=== PATIENT | male | born 1945 | race Caucasian/White ===

== ENCOUNTER 2021-01-03 15:59 | Inpatient (IN) | payer OTHER, MEDICARE ==
[~2021-01-03] VITALS: Ht 180.3 cm; Wt 90.8 kg
[2021-01-03] MEDS ORDERED: potassium Cl 20 mEq SR tablet PO PRN ×2 (18:55)
[2021-01-03] MEDS ORDERED: magnesium hydroxide 30ml (MOM) UD suspension PO PRN (18:55)
[2021-01-03] MEDS ORDERED: potassium Cl 40MEQ/1/2NS 520ml 520 ML IV PRN ×2 (18:55)
[2021-01-03] MEDS ORDERED: morphine 4 MG/ML inj SYRINge IV PRN (18:55)
[2021-01-03] MEDS ORDERED: HYDROcodone/acetaminophen 10/325mg tab PO PRN (18:55)
[2021-01-03] MEDS ORDERED: acetaminophen 325mg tablet PO PRN ×2 (18:55)
[2021-01-03] MEDS ORDERED: ondansetron/PF 4mg/2ml inj IV PRN (18:55)
[2021-01-03] MEDS ORDERED: potassium Cl 40MEQ/250ML bag 270 ML IV PRN ×2 (18:55)
[2021-01-03 19:00] VITALS: BP 130/77
[2021-01-03] MEDS: LIDOcaine 2% 10ml TOPICAL JELLY (Urojet) TP ONE (19:18)
[2021-01-03] MEDS: famotidine 20mg tablet PO SCH (19:34)
[2021-01-03] MEDS: normal saline 1000ml 1,000 ML IV SCH (19:34)
[2021-01-03] MEDS: docusate sod 100mg capsule PO SCH (19:34)
[2021-01-03] MEDS ORDERED: SACU1TAB PO (19:53)
[2021-01-03] MEDS ORDERED: APIX5TAB3 PO (19:53)
[2021-01-03] MEDS ORDERED: ATOR10TA87 PO (19:53)
[2021-01-03] MEDS ORDERED: CARV3.12 PO (19:53)
[2021-01-03] MEDS ORDERED: CLOP75TA34 PO (19:53)
[2021-01-03 20:00] VITALS: BP 129/78
[2021-01-03] MEDS ORDERED: REMDESIVIR INJ 200 MG in normal saline 100ml IV soln 60 ML IV ONE (20:00)
[2021-01-03 20:14] LABS: BASOPHILS % (AUTO) 0.1 % (0-1); EOSINOPHILS % (AUTO) 0 % (0-6); HEMATOCRIT 39.4 % (42.0-52.0); HEMOGLOBIN 12.9 g/dl (14.0-17.9); LYMPHOCYTES # (AUTO) 0.8 X10'3 (1.1-4.8); LYMPHOCYTES % (AUTO) 13.9 % (21-51); MEAN CORPUSCULAR HEMOGLOBIN 31.1 PG (27.0-31.0); MEAN CORPUSCULAR HGB CONC 32.8 g/dL (33.0-36.5); MEAN CORPUSCULAR VOLUME 94.8 FL (78-98); MEAN PLATELET VOLUME 9.8 FL (7.4-10.4); MONOCYTES # (AUTO) 0.1 X10'3 (0-0.9); MONOCYTES % (AUTO) 2.4 % (2-12); NEUTROPHILS # (AUTO) 4.9 X10'3 (1.8-7.7); NEUTROPHILS % (AUTO) 83.6 % (42-75); PLATELET COUNT 114 X10'3 (140-440); RED BLOOD COUNT 4.15 X10'6 (4.70-6.10); RED CELL DISTRIBUTION WIDTH 14.5 % (11.5-14.5); WHITE BLOOD COUNT 5.9 X10'3 (4.5-11.0)
[2021-01-03 20:31] LABS: ALANINE AMINOTRANSFERASE 92 U/L (12-78); ALBUMIN 2.2 G/DL (3.4-5.0); ALBUMIN/GLOBULIN RATIO 0.4 (1.1-1.5); ALKALINE PHOSPHATASE 70 IU/L (46-116); ANION GAP 11 (8-16); ASPARTATE AMINO TRANSFERASE 116 U/L (10-37); BILIRUBIN,TOTAL 0.9 MG/DL (0.1-1.0); BLOOD UREA NITROGEN 28 MG/DL (7-18); BUN/CREATININE RATIO 19.4 (5.4-32.0); CALCIUM 9.3 MG/DL (8.5-10.1); CHLORIDE 98 MMOL/L (99-107); CREATININE 1.44 MG/DL (0.60-1.10); GLUCOSE 122 MG/DL (70-104); MAGNESIUM 2.6 MG/DL (1.5-2.4); PHOSPHORUS 3.1 MG/DL (2.3-4.5); POTASSIUM 4.7 MMOL/L (3.5-5.1); SODIUM 134 MMOL/L (135-145); TOTAL CARBON DIOXIDE 25.5 MMOL/L (24-32); TOTAL PROTEIN 7.4 G/DL (6.4-8.2); eGFR 48 ML/MIN
[2021-01-03 21:00] VITALS: BP 148/88
[2021-01-03] MEDS: dexamethasone 4mg/ml inj IV SCH (21:14)
[2021-01-03 22:00] VITALS: BP 145/86
[2021-01-03 23:00] VITALS: BP 138/85
[2021-01-04] VITALS (19 sets, daily range): BP systolic 106–152; BP diastolic 58–88
--- NOTE | 2021-01-04 04:00 | NUR ---
Patient unable to urinate, very uncomfortably. Bladder scan shows 600+mL, patient has a penile implant with lap band so I called Dr. Pack for advice on paul catheter insert. Per ok to place paul, I should not have problem.
[2021-01-04] MEDS: LIDOcaine 2% 10ml TOPICAL JELLY (Urojet) TP ONE (05:02)
[2021-01-04 06:07] LABS: BASOPHILS % (AUTO) 0.2 % (0-1); EOSINOPHILS % (AUTO) 0 % (0-6); HEMATOCRIT 39.3 % (42.0-52.0); LYMPHOCYTES # (AUTO) 0.4 X10'3 (1.1-4.8); LYMPHOCYTES % (AUTO) 6.6 % (21-51); MEAN CORPUSCULAR HEMOGLOBIN 31.5 PG (27.0-31.0); MEAN CORPUSCULAR HGB CONC 33.1 g/dL (33.0-36.5); MEAN PLATELET VOLUME 10.1 FL (7.4-10.4); MONOCYTES # (AUTO) 0.1 X10'3 (0-0.9); MONOCYTES % (AUTO) 1.2 % (2-12); NEUTROPHILS # (AUTO) 5.9 X10'3 (1.8-7.7); PLATELET COUNT 99 X10'3 (140-440); RED BLOOD COUNT 4.13 X10'6 (4.70-6.10); RED CELL DISTRIBUTION WIDTH 14.5 % (11.5-14.5); WHITE BLOOD COUNT 6.4 X10'3 (4.5-11.0)
--- NOTE | 2021-01-04 06:22 | NUR ---
Problems reprioritized. Patient report given, questions answered & plan of care reviewed with MARILU Rodriguez.
[2021-01-04 06:26] LABS: ALANINE AMINOTRANSFERASE 70 U/L (12-78); ALBUMIN/GLOBULIN RATIO 0.4 (1.1-1.5); ALKALINE PHOSPHATASE 68 IU/L (46-116); ANION GAP 8 (8-16); ASPARTATE AMINO TRANSFERASE 65 U/L (10-37); BILIRUBIN,TOTAL 0.5 MG/DL (0.1-1.0); BLOOD UREA NITROGEN 39 MG/DL (7-18); CALCIUM 9.3 MG/DL (8.5-10.1); CHLORIDE 102 MMOL/L (99-107); GLUCOSE 119 MG/DL (70-104); MAGNESIUM 2.9 MG/DL (1.5-2.4); PHOSPHORUS 4.9 MG/DL (2.3-4.5); POTASSIUM 4.7 MMOL/L (3.5-5.1); SODIUM 136 MMOL/L (135-145); TOTAL CARBON DIOXIDE 26.1 MMOL/L (24-32); eGFR 28 ML/MIN
[2021-01-04] MEDS: atorvastatin 10mg tablet PO SCH (09:20)
[2021-01-04] MEDS: normal saline 1000ml 1,000 ML IV SCH ×2 (10:05→21:35)
[2021-01-04] MEDS: famotidine 20mg tablet PO SCH ×2 (10:05→21:14)
[2021-01-04] MEDS: dexamethasone 4mg/ml inj IV SCH (10:05)
[2021-01-04] MEDS: docusate sod 100mg capsule PO SCH ×2 (10:06→21:14)
--- NOTE | 2021-01-04 14:19 | NUR ---
Pt desated to the 70"s and had to be proned for a couple hours. Pt got echo and had to be put on 100% FIO2 to maitntain good O2 sats. Pt to be proned again and FIO2 turned to RT setting of 40%. Dr. Cortez informed pt is not a good canidate to be transferred out at this time.
[2021-01-04 16:45] LABS: TOTAL PROTEIN,URINE RANDOM 113.9 MG/DL
[2021-01-04 17:02] LABS: D-DIMER > 35.20 MG/L FEU (0-0.50)
[2021-01-04 17:03] LABS: UA COLLECTION TYPE FOLEY CATH
[2021-01-04 17:04] LABS: CLARITY,URINE CLEAR (Clear); COLOR,URINE YELLOW (Yellow); PROTEIN,URINE 30 mg/dl (Neg)
[2021-01-04 17:05] LABS: GLUCOSE, URINE NEGATIVE (Neg); KETONES,URINE NEGATIVE (Neg); NITRITES, URINE NEGATIVE (Neg); OCCULT BLOOD,URINE LARGE (Neg)
[2021-01-04 17:06] LABS: LEUKOCYTE ESTERASE ,URINE NEGATIVE (Neg); UROBILINOGEN,URINE 0.2 E.U/dL (0.2-1.0)
[2021-01-04 17:15] LABS: FINE GRANULAR CAST 0-3 /LPF (NEGATIVE)
[2021-01-04 17:16] LABS: BACTERIA,URINE FEW /HPF (Neg); MUCUS STRANDS FEW /LPF (Neg); SQUAMOUS EPITHELIAL CELL,UR FEW /LPF (FEW)
[2021-01-04 17:17] LABS: WBC,URINE 0-4 /HPF (0-4)
[2021-01-04 18:27] LABS: UA EOSINOPHILS NO EOS /HPF
[2021-01-04] MEDS: REMDESIVIR INJ 100 MG in normal saline 100ml IV soln 80 ML IV SCH (21:10)
[2021-01-04] MEDS: apixaban 5mg tablet PO SCH (21:13)
[2021-01-04] MEDS: sacubitril/valsartan 24mg-26mg tablet PO SCH (21:14)
[2021-01-04] MEDS: carVEDilol 3.125mg tablet PO SCH (21:14)
[2021-01-05] VITALS (21 sets, daily range): BP systolic 99–149; BP diastolic 63–85
[2021-01-05 06:03] LABS: BASOPHILS % (AUTO) 0.3 % (0-1); EOSINOPHILS % (AUTO) 0 % (0-6); HEMATOCRIT 40.1 % (42.0-52.0); HEMOGLOBIN 12.9 g/dl (14.0-17.9); LYMPHOCYTES # (AUTO) 0.5 X10'3 (1.1-4.8); LYMPHOCYTES % (AUTO) 6.6 % (21-51); MEAN CORPUSCULAR HGB CONC 32.3 g/dL (33.0-36.5); MEAN PLATELET VOLUME 10.4 FL (7.4-10.4); MONOCYTES # (AUTO) 0.2 X10'3 (0-0.9); MONOCYTES % (AUTO) 2.5 % (2-12); NEUTROPHILS # (AUTO) 6.6 X10'3 (1.8-7.7); NEUTROPHILS % (AUTO) 90.6 % (42-75); PLATELET COUNT 114 X10'3 (140-440); RED BLOOD COUNT 4.17 X10'6 (4.70-6.10); RED CELL DISTRIBUTION WIDTH 14.5 % (11.5-14.5); WHITE BLOOD COUNT 7.3 X10'3 (4.5-11.0)
[2021-01-05 06:14] LABS: ALANINE AMINOTRANSFERASE 59 U/L (12-78); ALBUMIN 1.9 G/DL (3.4-5.0); ALBUMIN/GLOBULIN RATIO 0.4 (1.1-1.5); ALKALINE PHOSPHATASE 78 IU/L (46-116); ANION GAP 8 (8-16); ASPARTATE AMINO TRANSFERASE 52 U/L (10-37); BILIRUBIN,TOTAL 0.7 MG/DL (0.1-1.0); BLOOD UREA NITROGEN 26 MG/DL (7-18); C-REACTIVE PROTEIN 18.41 MG/DL (0.0-0.5); CALCIUM 9.2 MG/DL (8.5-10.1); CHLORIDE 105 MMOL/L (99-107); CREATININE 1.18 MG/DL (0.60-1.10); GLUCOSE 103 MG/DL (70-104); MAGNESIUM 2.6 MG/DL (1.5-2.4); PHOSPHORUS 3.1 MG/DL (2.3-4.5); POTASSIUM 4.5 MMOL/L (3.5-5.1); SODIUM 138 MMOL/L (135-145); TOTAL CARBON DIOXIDE 25.5 MMOL/L (24-32); eGFR 60 ML/MIN
[2021-01-05 07:09] LABS: D-DIMER > 35.20 MG/L FEU (0-0.50)
--- NOTE | 2021-01-05 07:30 | NUR ---
pt received in a prone position, o2 sats were in the higher 90s. pt complained af being uncomfortable in this position and rolled over to supine. pt tangled in clothes and cords, pt repositioned in bed with HOB elevated. Sats remain in the high 80s. Pt informed that his saturations were much improved in the prone position. He said he didnt care he was tired and lying that way and refused to prone again at this time.
[2021-01-05] MEDS: sacubitril/valsartan 24mg-26mg tablet PO SCH ×2 (08:00→20:03)
[2021-01-05] MEDS: clopidogrel 75mg tablet PO SCH (08:15)
[2021-01-05] MEDS: apixaban 5mg tablet PO SCH ×2 (08:15→20:03)
[2021-01-05] MEDS: famotidine 20mg tablet PO SCH ×2 (08:16→20:02)
[2021-01-05] MEDS: atorvastatin 10mg tablet PO SCH (08:16)
[2021-01-05] MEDS: carVEDilol 3.125mg tablet PO SCH ×2 (08:16→20:03)
[2021-01-05] MEDS: dexamethasone 4mg/ml inj IV SCH ×2 (08:17→23:30)
--- NOTE | 2021-01-05 08:30 | NUR ---
pt was able to take am medications without difficulty. Pt are approx 50% of his breakfast tray.
[2021-01-05] MEDS: docusate sod 100mg capsule PO SCH ×2 (08:54→20:02)
--- NOTE | 2021-01-05 14:00 | NUR ---
pt refusing to turn prone. spoke with pt about how important this was for his lungs, he agreed. pt proned with foam pilow from the operating room, several pilows under chest and hips. tolerated well. o2 sat immediately climbed to the mid 90's. Multiple phone calls from pts about his condition. Reassured her that he was proning and doing what was best for his lungs at this time. She was asking for pt to be walked down the hallway. I explained about high flow and the patients shortness of breath with any exertion.
[2021-01-05] MEDS: dexmedetomidin/NS 400mcg/100ml 100 ML IV PRN (15:19)
[2021-01-05] MEDS: normal saline 1000ml 1,000 ML IV SCH ×2 (15:20→19:17)
--- NOTE | 2021-01-05 16:00 | NUR ---
pt states he was having neck and back pain from lying prone. Pt encouraged to prone later, assisted to supine o2 sats immediately in the 80's. pt once again educated on the importance of proning. Spoke to patients again and explained the importance of proning to her also.
--- NOTE | 2021-01-05 17:39 | NUR ---
Dr. Proctor at bedside, pt revealed that he had taken medicine in the past for PTSD and that proning brought back memories. MD explained the use of precedex and pt agreed that he needed it to stay in the prone position
--- NOTE | 2021-01-05 18:19 | NUR ---
Problems reprioritized. Patient report given, questions answered & plan of care reviewed with Geovany MICHEL.
[2021-01-05] MEDS: REMDESIVIR INJ 100 MG in normal saline 100ml IV soln 80 ML IV SCH (20:01)
[2021-01-06] VITALS (23 sets, daily range): BP systolic 90–129; BP diastolic 56–76
--- NOTE | 2021-01-06 06:25 | NUR ---
Patient in room CICU 2014. I have received report from Geovany MICHEL and had the opportunity to ask questions and assume patient care.
--- NOTE | 2021-01-06 06:30 | NUR ---
crashing patient on unit unable to administer med.
[2021-01-06 06:34] LABS: BASOPHILS % (AUTO) 0.1 % (0-1); EOSINOPHILS % (AUTO) 0.1 % (0-6); HEMATOCRIT 37.6 % (42.0-52.0); HEMOGLOBIN 12.4 g/dl (14.0-17.9); LYMPHOCYTES # (AUTO) 0.5 X10'3 (1.1-4.8); LYMPHOCYTES % (AUTO) 7.9 % (21-51); MEAN CORPUSCULAR HEMOGLOBIN 31.4 PG (27.0-31.0); MEAN CORPUSCULAR HGB CONC 33.1 g/dL (33.0-36.5); MEAN PLATELET VOLUME 10.3 FL (7.4-10.4); MONOCYTES # (AUTO) 0.1 X10'3 (0-0.9); MONOCYTES % (AUTO) 2.2 % (2-12); NEUTROPHILS # (AUTO) 5.4 X10'3 (1.8-7.7); NEUTROPHILS % (AUTO) 89.7 % (42-75); PLATELET COUNT 97 X10'3 (140-440); RED BLOOD COUNT 3.96 X10'6 (4.70-6.10); RED CELL DISTRIBUTION WIDTH 14.8 % (11.5-14.5); WHITE BLOOD COUNT 6.1 X10'3 (4.5-11.0)
[2021-01-06 06:40] LABS: ALANINE AMINOTRANSFERASE 50 U/L (12-78); ALBUMIN 1.7 G/DL (3.4-5.0); ALBUMIN/GLOBULIN RATIO 0.4 (1.1-1.5); ALKALINE PHOSPHATASE 77 IU/L (46-116); ANION GAP 6 (8-16); ASPARTATE AMINO TRANSFERASE 40 U/L (10-37); BILIRUBIN,TOTAL 0.6 MG/DL (0.1-1.0); BLOOD UREA NITROGEN 22 MG/DL (7-18); BUN/CREATININE RATIO 19.1 (5.4-32.0); C-REACTIVE PROTEIN 22.49 MG/DL (0.0-0.5); CALCIUM 8.9 MG/DL (8.5-10.1); CHLORIDE 103 MMOL/L (99-107); CREATININE 1.15 MG/DL (0.60-1.10); GLUCOSE 138 MG/DL (70-104); MAGNESIUM 2.4 MG/DL (1.5-2.4); PHOSPHORUS 3.3 MG/DL (2.3-4.5); POTASSIUM 4.3 MMOL/L (3.5-5.1); SODIUM 133 MMOL/L (135-145); TOTAL CARBON DIOXIDE 23.9 MMOL/L (24-32); TOTAL PROTEIN 6.4 G/DL (6.4-8.2); eGFR 62 ML/MIN
[2021-01-06 06:56] LABS: D-DIMER > 35.20 MG/L FEU (0-0.50)
[2021-01-06] MEDS: dexamethasone 4mg/ml inj IV SCH ×2 (08:00→20:00)
[2021-01-06] MEDS: docusate sod 100mg capsule PO SCH ×2 (08:01→20:41)
[2021-01-06] MEDS: famotidine 20mg tablet PO SCH ×2 (08:01→20:41)
[2021-01-06] MEDS: carVEDilol 3.125mg tablet PO SCH ×2 (08:01→20:41)
[2021-01-06] MEDS: clopidogrel 75mg tablet PO SCH (08:01)
[2021-01-06] MEDS: atorvastatin 10mg tablet PO SCH (08:01)
[2021-01-06] MEDS: sacubitril/valsartan 24mg-26mg tablet PO SCH ×2 (08:02→21:48)
[2021-01-06] MEDS: enoxaparin 80mg/0.8ml syringe SUBCUT SCH ×2 (08:10→20:42)
--- NOTE | 2021-01-06 10:19 | NUR ---
Offered to assist pt in getting into prone position. Pt refuses. States he needs to get up and walk. Physical therapy called, busy on another unit at this time. Pt notified. Hopefully PT will be able to get pt up to chair, but he seems extremely short of breath while only talking
[2021-01-06] MEDS: morphine 2 MG/ML inj. syringe IV PRN (11:01)
[2021-01-06] MEDS: normal saline 1000ml 1,000 ML IV SCH (11:18)
[2021-01-06] MEDS: dexmedetomidin/NS 400mcg/100ml 100 ML IV PRN (11:19)
--- NOTE | 2021-01-06 12:30 | NUR ---
Noted pt with mostly 0-25% PO intake on a regular diet not meeting estimated nutrient needs though pt with 100% PO intake of milk at breakfast this morning. Possibly pt having a more difficult time with solid food d/t respiratory status. Recommend Ensure Enlive TID to optimize PO intake, d/w MD who agrees. Will continue to follow closely and monitor need for further nutrition intervention. Addendum: 01/06/21 at [address] Amended: Links added.
[2021-01-06] MEDS ORDERED: venlafaxine 37.5mg tablet PO SCH (12:51)
--- NOTE | 2021-01-06 13:17 | NUR ---
physical therapist at bedside, pt was able to sit at bedside with a significant drop in o2. o2 turned up to 95% and non rebrreather placed on pt also. Pt recovered to 88 and then placed in chair. I was able to remove non rebreather and sats remain in the 80's pt is asymptomatic and wants to sit up.
--- NOTE | 2021-01-06 14:26 | NUR ---
pt tolerating sitting up. on the phone with his ,asymptomatic, o2 sats high 80's to low 90's
--- NOTE | 2021-01-06 18:14 | NUR ---
Problems reprioritized. Patient report given, questions answered & plan of care reviewed with Saloni MICHEL.
[2021-01-06] MEDS: REMDESIVIR INJ 100 MG in normal saline 100ml IV soln 80 ML IV SCH (20:42)
[2021-01-06] MEDS ORDERED: QUEtiapine 25mg tablet PO SCH (21:00)
[2021-01-06] MEDS ORDERED: dexamethasone 4mg/ml inj IV ONE (21:40)
[2021-01-07] VITALS (23 sets, daily range): BP systolic 94–147; BP diastolic 58–78
[2021-01-07] MEDS: normal saline 1000ml 1,000 ML IV SCH ×2 (05:48→16:15)
--- NOTE | 2021-01-07 06:00 | NUR ---
Patient in room CICU 2014. I have received report from Saloni MICHEL and had the opportunity to ask questions and assume patient care.
--- NOTE | 2021-01-07 06:30 | NUR ---
assisted turning pt to supine position. While in prone position pt s o2 sats were 98-99%. Sats dropped to 90 when supine but recovered some. Pt is sleepy will allow him to rest until breakfast.
[2021-01-07 06:44] LABS: BASOPHILS % (AUTO) 0.2 % (0-1); EOSINOPHILS % (AUTO) 0 % (0-6); HEMATOCRIT 40.2 % (42.0-52.0); HEMOGLOBIN 13.1 g/dl (14.0-17.9); LYMPHOCYTES # (AUTO) 0.4 X10'3 (1.1-4.8); LYMPHOCYTES % (AUTO) 5.7 % (21-51); MEAN CORPUSCULAR HEMOGLOBIN 31.3 PG (27.0-31.0); MEAN CORPUSCULAR HGB CONC 32.6 g/dL (33.0-36.5); MEAN CORPUSCULAR VOLUME 95.9 FL (78-98); MEAN PLATELET VOLUME 9.8 FL (7.4-10.4); MONOCYTES # (AUTO) 0.1 X10'3 (0-0.9); MONOCYTES % (AUTO) 2.3 % (2-12); NEUTROPHILS # (AUTO) 5.7 X10'3 (1.8-7.7); NEUTROPHILS % (AUTO) 91.8 % (42-75); PLATELET COUNT 102 X10'3 (140-440); RED CELL DISTRIBUTION WIDTH 15.1 % (11.5-14.5); WHITE BLOOD COUNT 6.2 X10'3 (4.5-11.0)
[2021-01-07 07:00] LABS: D-DIMER 33.75 MG/L FEU (0-0.50)
[2021-01-07 07:02] LABS: ALANINE AMINOTRANSFERASE 61 U/L (12-78); ALBUMIN 1.6 G/DL (3.4-5.0); ALBUMIN/GLOBULIN RATIO 0.3 (1.1-1.5); ALKALINE PHOSPHATASE 68 IU/L (46-116); ANION GAP 6 (8-16); ASPARTATE AMINO TRANSFERASE 55 U/L (10-37); BILIRUBIN,TOTAL 0.5 MG/DL (0.1-1.0); BLOOD UREA NITROGEN 25 MG/DL (7-18); BUN/CREATININE RATIO 25.5 (5.4-32.0); C-REACTIVE PROTEIN 20.85 MG/DL (0.0-0.5); CALCIUM 9.2 MG/DL (8.5-10.1); CHLORIDE 107 MMOL/L (99-107); CREATININE 0.98 MG/DL (0.60-1.10); GLUCOSE 135 MG/DL (70-104); MAGNESIUM 2.3 MG/DL (1.5-2.4); PHOSPHORUS 3.8 MG/DL (2.3-4.5); POTASSIUM 5.1 MMOL/L (3.5-5.1); SODIUM 137 MMOL/L (135-145); TOTAL CARBON DIOXIDE 24.4 MMOL/L (24-32); TOTAL PROTEIN 6.7 G/DL (6.4-8.2); eGFR 75 ML/MIN
[2021-01-07] MEDS ORDERED: QUEtiapine 25mg tablet PO SCH (08:00)
[2021-01-07] MEDS: docusate sod 100mg capsule PO SCH ×2 (08:23→20:07)
[2021-01-07] MEDS: famotidine 20mg tablet PO SCH ×2 (08:23→20:07)
[2021-01-07] MEDS: carVEDilol 3.125mg tablet PO SCH ×2 (08:23→20:07)
[2021-01-07] MEDS: atorvastatin 10mg tablet PO SCH (08:23)
[2021-01-07] MEDS: enoxaparin 80mg/0.8ml syringe SUBCUT SCH ×2 (08:23→20:17)
[2021-01-07] MEDS: clopidogrel 75mg tablet PO SCH (08:24)
[2021-01-07] MEDS: venlafaxine XR 37.5mg cap (Q24H) PO SCH (08:42)
[2021-01-07] MEDS: sacubitril/valsartan 24mg-26mg tablet PO SCH ×2 (08:43→20:10)
[2021-01-07] MEDS: dexamethasone 4mg/ml inj IV SCH ×2 (08:43→20:15)
--- NOTE | 2021-01-07 10:00 | NUR ---
Breakfast heated up, pt ate. Spoke to pts on the telephone reference his condition. O2 weaned down slightly
--- NOTE | 2021-01-07 14:42 | NUR ---
pts oxygenation dropped to the high 70's oxygen turned back up to 90% with good results. pt complains of being cold, warm blankets applied, room temperature increased.
--- NOTE | 2021-01-07 15:16 | NUR ---
PHYSICIAL THERAPIST AT BEDSIDE, PT DID MINIMAL EXERCISES DUE TO OXYGENATION O2 SATS DECREASED TO THE MID 70S WITH EXERTION PT RECOVERED QUICKLY AFTER STOPPING EXERCISE.
--- NOTE | 2021-01-07 16:59 | NUR ---
PT APPEARS TO BE WORSENING, UNABLE TO HOLD WATER CUP UP TO DRINK HE SAYS HE FEELS TOO WEAK. o2 NEED INCREASED NOW AT 40 LITERS AND 100%, WITH SATS IN THE MID 80'S. DR PRATHER CALLED TO BEDSIDE. SHE SPOKE WITH PT ABOUT PRONING AND POSSIBLE INTUBATION, PT IS AGREEABLE TO BOTH. SHE STATED SHE WILL UPDATE PTS . SHANTA ORDERED STAT FROM PHARMACY
[2021-01-07] MEDS: dexmedetomidin/NS 400mcg/100ml 100 ML IV PRN ×2 (17:42→23:26)
[2021-01-07] MEDS: lactose-reduced food (Ensure Enlive) - 237ml bottle PO SCH (18:00)
--- NOTE | 2021-01-07 18:13 | NUR ---
PT CHANGED TO PRONE POSITION ON THE BED, 02 SATS IMMEDIATELY INCREASED, PRECEDEX STARTED., PT EDUCATED ON THE IMPORTANCE OF THIS POSITION TO IMPROVE HIS OXYGENATION
--- NOTE | 2021-01-07 18:23 | NUR ---
Problems reprioritized. Patient report given, questions answered & plan of care reviewed with HIRAL MICHEL.
[2021-01-07] MEDS: REMDESIVIR INJ 100 MG in normal saline 100ml IV soln 80 ML IV SCH (20:19)
[2021-01-08] VITALS (24 sets, daily range): BP systolic 12–155; BP diastolic 49–84
[2021-01-08 06:51] LABS: ALANINE AMINOTRANSFERASE 51 U/L (12-78); ALBUMIN 1.4 G/DL (3.4-5.0); ALBUMIN/GLOBULIN RATIO 0.3 (1.1-1.5); ALKALINE PHOSPHATASE 71 IU/L (46-116); ANION GAP 9 (8-16); ASPARTATE AMINO TRANSFERASE 32 U/L (10-37); BILIRUBIN,TOTAL 0.5 MG/DL (0.1-1.0); BLOOD UREA NITROGEN 24 MG/DL (7-18); BUN/CREATININE RATIO 24.5 (5.4-32.0); C-REACTIVE PROTEIN 21.54 MG/DL (0.0-0.5); CALCIUM 8.8 MG/DL (8.5-10.1); CHLORIDE 106 MMOL/L (99-107); CREATININE 0.98 MG/DL (0.60-1.10); GLUCOSE 163 MG/DL (70-104); MAGNESIUM 2.4 MG/DL (1.5-2.4); PHOSPHORUS 3.8 MG/DL (2.3-4.5); SODIUM 139 MMOL/L (135-145); TOTAL CARBON DIOXIDE 24.3 MMOL/L (24-32); TOTAL PROTEIN 6.6 G/DL (6.4-8.2); eGFR 75 ML/MIN
[2021-01-08 06:53] LABS: BASOPHILS % (AUTO) 0.2 % (0-1); EOSINOPHILS % (AUTO) 0 % (0-6); HEMATOCRIT 39.5 % (42.0-52.0); LYMPHOCYTES # (AUTO) 0.4 X10'3 (1.1-4.8); LYMPHOCYTES % (AUTO) 6.4 % (21-51); MEAN CORPUSCULAR HEMOGLOBIN 30.9 PG (27.0-31.0); MEAN CORPUSCULAR VOLUME 93.6 FL (78-98); MEAN PLATELET VOLUME 10.7 FL (7.4-10.4); MONOCYTES # (AUTO) 0.2 X10'3 (0-0.9); MONOCYTES % (AUTO) 3.1 % (2-12); NEUTROPHILS # (AUTO) 5.6 X10'3 (1.8-7.7); NEUTROPHILS % (AUTO) 90.3 % (42-75); PLATELET COUNT 105 X10'3 (140-440); RED BLOOD COUNT 4.22 X10'6 (4.70-6.10); RED CELL DISTRIBUTION WIDTH 15.2 % (11.5-14.5); WHITE BLOOD COUNT 6.2 X10'3 (4.5-11.0)
[2021-01-08 07:08] LABS: D-DIMER > 35.20 MG/L FEU (0-0.50)
[2021-01-08] MEDS: lactose-reduced food (Ensure Enlive) - 237ml bottle PO SCH ×2 (08:00→18:00)
--- NOTE | 2021-01-08 08:37 | NUR ---
Initial: Pt admitted w/ acute respiratory failure r/t Covid. Pt noted w/ poor PO intake initially, mostly 0-25% from 01/04-, though improved on 01/07 w/ 50-75% of meals. Per RN, pt is weak and requires some assistance w/ feeding. No ONS documented, though RN reports pt did refuse one last night but she will try to encourage him for breakfast today. No N/V/D noted, LBM 01/04 receiving routine colace. No further nutrition intervention implemented at this time, will continue to monitor. Recs: 1. Continue Regular diet as tolerated 2. Ensure Enlive TID 3. Bowel care per rx 4. Weekly wts Addendum: 01/08/21 at [address] Amended: Links added.
[2021-01-08] MEDS: sacubitril/valsartan 24mg-26mg tablet PO SCH ×2 (08:41→20:33)
[2021-01-08] MEDS: clopidogrel 75mg tablet PO SCH (08:41)
[2021-01-08] MEDS: atorvastatin 10mg tablet PO SCH (08:41)
[2021-01-08] MEDS: venlafaxine XR 37.5mg cap (Q24H) PO SCH (08:42)
[2021-01-08] MEDS: enoxaparin 80mg/0.8ml syringe SUBCUT SCH ×2 (08:42→20:34)
[2021-01-08] MEDS: famotidine 20mg tablet PO SCH ×2 (08:42→20:33)
[2021-01-08] MEDS: docusate sod 100mg capsule PO SCH ×2 (08:42→20:33)
[2021-01-08] MEDS: carVEDilol 3.125mg tablet PO SCH ×2 (08:43→20:33)
[2021-01-08] MEDS: dexamethasone 4mg/ml inj IV SCH ×2 (11:29→20:33)
[2021-01-08] MEDS: morphine 2 MG/ML inj. syringe IV PRN (11:53)
[2021-01-08] MEDS: normal saline 1000ml 1,000 ML IV SCH ×2 (13:00→20:32)
[2021-01-08] MEDS: dexmedetomidin/NS 400mcg/100ml 100 ML IV PRN (13:31)
[2021-01-08] MEDS ORDERED: bisacodyl 10mg suppository rectal RC STA (14:42)
--- NOTE | 2021-01-08 18:10 | NUR ---
Patient in room CICU 2014. I have received report from Lianet MICHEL and had the opportunity to ask questions and assume patient care.
[2021-01-08] MEDS ORDERED: polyethylene glycol 3350 17gm powd pack PO SCH (21:00)
[2021-01-09] VITALS (23 sets, daily range): BP systolic 79–149; BP diastolic 46–76
[2021-01-09] MEDS: methylPREDNISolone sod succ 125mg/2ml vial IV SCH ×4 (00:57→23:29)
[2021-01-09] MEDS: dexmedetomidin/NS 400mcg/100ml 100 ML IV PRN ×2 (00:57→18:26)
--- NOTE | 2021-01-09 06:18 | NUR ---
Problems reprioritized. Patient report given, questions answered & plan of care reviewed with Lianet MICHEL .
[2021-01-09 06:50] LABS: BASOPHILS % (AUTO) 0.1 % (0-1); EOSINOPHILS % (AUTO) 0 % (0-6); HEMATOCRIT 38.1 % (42.0-52.0); HEMOGLOBIN 12.6 g/dl (14.0-17.9); LYMPHOCYTES # (AUTO) 0.3 X10'3 (1.1-4.8); LYMPHOCYTES % (AUTO) 4.3 % (21-51); MEAN CORPUSCULAR HEMOGLOBIN 31.3 PG (27.0-31.0); MEAN CORPUSCULAR VOLUME 94.9 FL (78-98); MEAN PLATELET VOLUME 10.7 FL (7.4-10.4); MONOCYTES # (AUTO) 0.1 X10'3 (0-0.9); MONOCYTES % (AUTO) 1.5 % (2-12); NEUTROPHILS # (AUTO) 6.8 X10'3 (1.8-7.7); NEUTROPHILS % (AUTO) 94.1 % (42-75); PLATELET COUNT 94 X10'3 (140-440); RED BLOOD COUNT 4.01 X10'6 (4.70-6.10); RED CELL DISTRIBUTION WIDTH 14.9 % (11.5-14.5); WHITE BLOOD COUNT 7.2 X10'3 (4.5-11.0)
[2021-01-09 07:11] LABS: D-DIMER 10.05 MG/L FEU (0-0.50)
[2021-01-09 07:18] LABS: ALANINE AMINOTRANSFERASE 44 U/L (12-78); ALBUMIN 1.3 G/DL (3.4-5.0); ALBUMIN/GLOBULIN RATIO 0.3 (1.1-1.5); ALKALINE PHOSPHATASE 64 IU/L (46-116); ANION GAP 7 (8-16); ASPARTATE AMINO TRANSFERASE 34 U/L (10-37); BILIRUBIN,TOTAL 0.5 MG/DL (0.1-1.0); BLOOD UREA NITROGEN 24 MG/DL (7-18); BUN/CREATININE RATIO 23.1 (5.4-32.0); C-REACTIVE PROTEIN 22.55 MG/DL (0.0-0.5); CALCIUM 8.6 MG/DL (8.5-10.1); CHLORIDE 103 MMOL/L (99-107); CREATININE 1.04 MG/DL (0.60-1.10); GLUCOSE 128 MG/DL (70-104); MAGNESIUM 2.3 MG/DL (1.5-2.4); PHOSPHORUS 3.8 MG/DL (2.3-4.5); POTASSIUM 4.5 MMOL/L (3.5-5.1); SODIUM 132 MMOL/L (135-145); TOTAL CARBON DIOXIDE 22.3 MMOL/L (24-32); TOTAL PROTEIN 6.2 G/DL (6.4-8.2); eGFR 70 ML/MIN
[2021-01-09 07:34] LABS: LARGE PLATELETS FEW; PLATELET ESTIMATE DECREASED
[2021-01-09 07:35] LABS: BURR CELLS FEW; SCHISTOCYTES FEW
[2021-01-09] MEDS: lactose-reduced food (Ensure Enlive) - 237ml bottle PO SCH ×3 (08:00→18:00)
[2021-01-09] MEDS: clopidogrel 75mg tablet PO SCH (08:28)
[2021-01-09] MEDS: atorvastatin 10mg tablet PO SCH (08:28)
[2021-01-09] MEDS: venlafaxine XR 37.5mg cap (Q24H) PO SCH (08:29)
[2021-01-09] MEDS: carVEDilol 3.125mg tablet PO SCH ×2 (08:29→20:00)
[2021-01-09] MEDS: docusate sod 100mg capsule PO SCH ×2 (08:29→20:01)
[2021-01-09] MEDS: sacubitril/valsartan 24mg-26mg tablet PO SCH ×2 (08:29→20:00)
[2021-01-09] MEDS: famotidine 20mg tablet PO SCH ×2 (08:29→20:00)
[2021-01-09] MEDS: enoxaparin 80mg/0.8ml syringe SUBCUT SCH ×2 (08:30→20:01)
[2021-01-09] MEDS: bisacodyl 10mg suppository rectal RC SCH (11:47)
[2021-01-09] MEDS ORDERED: venlafaxine XR 37.5mg cap (Q24H) PO ONE (11:50)
[2021-01-09] MEDS: polyethylene glycol 3350 17gm powd pack PO SCH ×3 (12:00→20:01)
[2021-01-09 12:43] LABS: ABG BASE EXCESS -1.5 mmol/L (-2.0-2.0); ABG HCO3 20.2 mmol/L (22.0-26.0); ABG OXYGEN SATURATION 83.3 % (94-97); ABG PCO2 (T) 26.2 mmHg (35.0-48.0); ABG PO2 (T) 46.7 mmHg (75.0-100.0); FCOHb 0.1 % (0.0-3.9); FMetHb 0.1 % (0.0-1.5); FO2Hb 83.1 % (94-97); TOTAL HEMOGLOBIN 13.5 G/dl (14.0-18.0)
[2021-01-09] MEDS: morphine 2 MG/ML inj. syringe IV PRN ×2 (14:39→17:02)
[2021-01-09] MEDS: normal saline 1000ml 1,000 ML IV SCH ×3 (17:02→23:29)
--- NOTE | 2021-01-09 18:29 | NUR ---
Patient in room CICU 2014. I have received report from MARILU Martini and had the opportunity to ask questions and assume patient care.
--- NOTE | 2021-01-09 18:57 | NUR ---
Patient's nephew is here per 's request, they are concerned because he has asked to be a DNI and his wants him to reconsider. I have counseled the family on intubation and the outcomes, I have urged them to respect the patient's wishes as he is A&Ox3.
[2021-01-10] VITALS (24 sets, daily range): BP systolic 95–150; BP diastolic 60–92
[2021-01-10] MEDS: polyethylene glycol 3350 17gm powd pack PO SCH
[2021-01-10] MEDS: dexmedetomidin/NS 400mcg/100ml 100 ML IV PRN (01:32)
[2021-01-10 06:14] LABS: BASOPHILS % (AUTO) 0 % (0-1); EOSINOPHILS % (AUTO) 0 % (0-6); HEMATOCRIT 39.8 % (42.0-52.0); HEMOGLOBIN 13.1 g/dl (14.0-17.9); LYMPHOCYTES # (AUTO) 0.4 X10'3 (1.1-4.8); MEAN CORPUSCULAR HEMOGLOBIN 31.1 PG (27.0-31.0); MEAN CORPUSCULAR HGB CONC 32.9 g/dL (33.0-36.5); MEAN CORPUSCULAR VOLUME 94.5 FL (78-98); MEAN PLATELET VOLUME 10.6 FL (7.4-10.4); MONOCYTES # (AUTO) 0.2 X10'3 (0-0.9); NEUTROPHILS # (AUTO) 9.6 X10'3 (1.8-7.7); PLATELET COUNT 97 X10'3 (140-440); RED BLOOD COUNT 4.21 X10'6 (4.70-6.10); WHITE BLOOD COUNT 10.2 X10'3 (4.5-11.0)
--- NOTE | 2021-01-10 06:22 | NUR ---
Problems reprioritized. Patient report given, questions answered & plan of care reviewed with MARILU Hughes.
[2021-01-10 06:31] LABS: ALANINE AMINOTRANSFERASE 38 U/L (12-78); ALBUMIN 1.3 G/DL (3.4-5.0); ALBUMIN/GLOBULIN RATIO 0.3 (1.1-1.5); ALKALINE PHOSPHATASE 66 IU/L (46-116); ANION GAP 8 (8-16); ASPARTATE AMINO TRANSFERASE 28 U/L (10-37); BILIRUBIN,TOTAL 0.6 MG/DL (0.1-1.0); BLOOD UREA NITROGEN 27 MG/DL (7-18); BUN/CREATININE RATIO 27.8 (5.4-32.0); C-REACTIVE PROTEIN 24.43 MG/DL (0.0-0.5); CALCIUM 8.8 MG/DL (8.5-10.1); CHLORIDE 109 MMOL/L (99-107); CREATININE 0.97 MG/DL (0.60-1.10); GLUCOSE 154 MG/DL (70-104); MAGNESIUM 2.7 MG/DL (1.5-2.4); SODIUM 140 MMOL/L (135-145); TOTAL CARBON DIOXIDE 23.1 MMOL/L (24-32); TOTAL PROTEIN 6.3 G/DL (6.4-8.2); eGFR 76 ML/MIN
[2021-01-10] MEDS: sacubitril/valsartan 24mg-26mg tablet PO SCH ×2 (08:00→19:55)
[2021-01-10] MEDS ORDERED: venlafaxine XR 75mg capsule (Q24H) PO SCH (08:00)
[2021-01-10] MEDS: carVEDilol 3.125mg tablet PO SCH ×2 (08:00→19:55)
[2021-01-10] MEDS: lactose-reduced food (Ensure Enlive) - 237ml bottle PO SCH ×3 (08:00→18:00)
[2021-01-10] MEDS: methylPREDNISolone sod succ 125mg/2ml vial IV SCH ×2 (08:03→17:29)
[2021-01-10] MEDS: enoxaparin 80mg/0.8ml syringe SUBCUT SCH ×2 (08:03→19:56)
[2021-01-10] MEDS ORDERED: bisacodyl 10mg suppository rectal RC ONE (11:40)
[2021-01-10] MEDS: docusate sod 100mg capsule PO SCH ×2 (12:34→19:55)
[2021-01-10] MEDS: clopidogrel 75mg tablet PO SCH (12:34)
[2021-01-10] MEDS: atorvastatin 10mg tablet PO SCH (12:34)
[2021-01-10] MEDS: venlafaxine XR 75mg capsule (Q24H) PO SCH (12:34)
[2021-01-10] MEDS: famotidine 20mg tablet PO SCH ×2 (12:34→19:55)
--- NOTE | 2021-01-10 13:20 | NUR ---
TPN Consult: Pt respiratory status declined currently on full face bipap now NPO saturating 80's when supine and 90's when prone per RN. Pending PICC line at this time w/ TPN to start today per chief privacy officer; recs below. LBM 01/04 receiving routine colace w/ dulcolax suppository to start today per MD. Will monitor for PN tolerance and adjustment needs. Recs: 1. Continuous TPN per MD via central access using 2:1 Clinimix E /20 at 90ml/hr goal w/ separate 100ml 20% intralipids to run for 12 hours daily at 8.33ml/hr daily. In total to provide 2280ml volume/day, 114g AA, 456g DEX (3.88mg/kg/min), and 2206 total kcals. Initiate at 30ml/hr and if tolerated Q12H advance to goal rate. 2. TG/PALB Q /; daily wts 3. monitor for PN tolerance and adjustment needs 4. routine bowel care; 6 days constipation 5. advance to regular diet as medically indicated Addendum: 01/10/21 at [address] Amended: Links added.
[2021-01-10] MEDS ORDERED: magnesium Cl slow-release 64mg tablet PO PRN (14:15)
[2021-01-10] MEDS ORDERED: sodium phosphate inj. 30 MMOL in dextrose 5%-water 250 ML IV PRN (14:15)
[2021-01-10] MEDS ORDERED: Neutra Phos packet PO PRN (14:15)
[2021-01-10] MEDS ORDERED: magnesium 4gm in 100ml NS 100 ML IV PRN (14:15)
[2021-01-10] MEDS ORDERED: magnesium 2GM in 50ml NS 50 ML IV PRN (14:15)
[2021-01-10] MEDS ORDERED: sodium phosphate inj. 15 MMOL in dextrose 5%-water 250 ML IV PRN (14:15)
[2021-01-10 14:51] LABS: PREALBUMIN 6.7 MG/DL (19-36); TRIGLYCERIDES 61 MG/DL (20-135)
[2021-01-10] MEDS ORDERED: Dextrose 10%-water IV solution 1,000 ML IV PRN (16:50)
[2021-01-10] MEDS: normal saline 1000ml 1,000 ML IV SCH (18:55)
[2021-01-10] MEDS: MVI, adult No.4 with vit. K 10 ML in dextrose 5% water 500ml 500 ML IV SCH ×2 (18:55)
[2021-01-10] MEDS: ZINC/COPPER/MANGANESE/SELENIUM 0.5 ML, chromic chloride inj. 5 MCG in AA 5%/CALCIUM/LYT... IV SCH (19:01)
[2021-01-10] MEDS: fat emulsion IV bag 250 ML IV SCH (19:56)
[2021-01-11] VITALS (24 sets, daily range): BP systolic 91–179; BP diastolic 57–132
[2021-01-11] MEDS: methylPREDNISolone sod succ 125mg/2ml vial IV SCH ×3 (00:20→16:18)
--- NOTE | 2021-01-11 03:00 | NUR ---
TPN started, no hyperglycemic protocol ordered. Per Dr. John song to to order protocol
[2021-01-11] MEDS ORDERED: dextrose 50%-water 50ml dispensing syringe IV PRN ×2 (03:05)
[2021-01-11] MEDS ORDERED: glucagon, human recombinant 1mg kit SUBCUT PRN (03:05)
[2021-01-11] MEDS: normal saline 1000ml 1,000 ML IV SCH (06:00)
--- NOTE | 2021-01-11 06:36 | NUR ---
Problems reprioritized. Patient report given, questions answered & plan of care reviewed with MARILU Rodriguez.
[2021-01-11 06:49] LABS: EOSINOPHILS % (AUTO) 0 % (0-6); MONOCYTES # (AUTO) 0.3 X10'3 (0-0.9); WHITE BLOOD COUNT 16.8 X10'3 (4.5-11.0)
[2021-01-11 06:54] LABS: BASOPHILS # (AUTO) 0.1 X10'3 (0-0.2); BASOPHILS % (AUTO) 0.6 % (0-1); HEMATOCRIT 45.2 % (42.0-52.0); LYMPHOCYTES # (AUTO) 0.2 X10'3 (1.1-4.8); MEAN CORPUSCULAR HEMOGLOBIN 31.1 PG (27.0-31.0); MEAN CORPUSCULAR HGB CONC 33.1 g/dL (33.0-36.5); MEAN CORPUSCULAR VOLUME 94.1 FL (78-98); MEAN PLATELET VOLUME 10.9 FL (7.4-10.4); MONOCYTES % (AUTO) 1.8 % (2-12); NEUTROPHILS # (AUTO) 16.2 X10'3 (1.8-7.7); NEUTROPHILS % (AUTO) 96.6 % (42-75); PLATELET COUNT 99 X10'3 (140-440); RED BLOOD COUNT 4.81 X10'6 (4.70-6.10); RED CELL DISTRIBUTION WIDTH 15.2 % (11.5-14.5)
[2021-01-11 07:04] LABS: D-DIMER 2.64 MG/L FEU (0-0.50)
[2021-01-11 07:39] LABS: ALANINE AMINOTRANSFERASE 32 U/L (12-78); ALBUMIN 1.3 G/DL (3.4-5.0); ALBUMIN/GLOBULIN RATIO 0.2 (1.1-1.5); ALKALINE PHOSPHATASE 78 IU/L (46-116); ANION GAP 10 (8-16); BILIRUBIN,TOTAL 0.5 MG/DL (0.1-1.0); BLOOD UREA NITROGEN 26 MG/DL (7-18); BUN/CREATININE RATIO 27.4 (5.4-32.0); C-REACTIVE PROTEIN 17.79 MG/DL (0.0-0.5); CHLORIDE 108 MMOL/L (99-107); CREATININE 0.95 MG/DL (0.60-1.10); GLUCOSE 166 MG/DL (70-104); MAGNESIUM 2.7 MG/DL (1.5-2.4); SODIUM 140 MMOL/L (135-145); TOTAL CARBON DIOXIDE 22.4 MMOL/L (24-32); TOTAL PROTEIN 6.9 G/DL (6.4-8.2); eGFR 77 ML/MIN
[2021-01-11 07:45] LABS: ASPARTATE AMINO TRANSFERASE 29 U/L (10-37); PHOSPHORUS 2.9 MG/DL (2.3-4.5); POTASSIUM 4.9 MMOL/L (3.5-5.1)
[2021-01-11] MEDS: docusate sod 100mg capsule PO SCH ×2 (08:00→20:00)
[2021-01-11] MEDS: atorvastatin 10mg tablet PO SCH (08:00)
[2021-01-11] MEDS: carVEDilol 3.125mg tablet PO SCH ×2 (08:00→20:00)
[2021-01-11] MEDS: enoxaparin 80mg/0.8ml syringe SUBCUT SCH (08:00)
[2021-01-11] MEDS: famotidine 20mg tablet PO SCH ×2 (08:00→20:00)
[2021-01-11] MEDS: venlafaxine XR 75mg capsule (Q24H) PO SCH (08:00)
[2021-01-11] MEDS: clopidogrel 75mg tablet PO SCH (08:00)
[2021-01-11] MEDS: lactose-reduced food (Ensure Enlive) - 237ml bottle PO SCH ×3 (08:57→18:57)
[2021-01-11] MEDS: sacubitril/valsartan 24mg-26mg tablet PO SCH ×2 (09:01→20:00)
[2021-01-11] MEDS ORDERED: venlafaxine XR 75mg capsule (Q24H) PO ONE (13:45)
[2021-01-11] MEDS ORDERED: dexmedetomidin/NS 400mcg/100ml 100 ML IV PRN (13:53)
[2021-01-11] MEDS: insulin regular, human U-100 3ml vial - multi-dose SQ SCH ×2 (16:11→22:03)
--- NOTE | 2021-01-11 19:03 | NUR ---
Pt restarted on Precedex and advised to prone, desating to 70s and 80s while supine with max BiPAP settings. Attempted to prone patient at approx 1730, pt became tachycardic and desaturated to 30s-40s sustained. Notified MD and RT, called overhead for assistance. Family notified, new orders received. Pt VS stable. Shift report given.
[2021-01-11] MEDS: morphine 10mg/ml inj. 100 MG in normal saline 100ml IV soln 90 ML IV SCH (19:50)
[2021-01-11] MEDS: ZINC/COPPER/MANGANESE/SELENIUM 0.5 ML, chromic chloride inj. 5 MCG in AA 5%/CALCIUM/LYT... IV SCH (20:19)
[2021-01-11] MEDS: fat emulsion IV bag 250 ML IV SCH (20:19)
[2021-01-11] MEDS: insulin glargine (Lantus) pen - multi-dose SQ SCH (22:05)
[2021-01-12] VITALS (20 sets, daily range): BP systolic 67–152; BP diastolic 38–94
[2021-01-12] MEDS: methylPREDNISolone sod succ 125mg/2ml vial IV SCH ×3 (00:13→19:53)
[2021-01-12] MEDS: enoxaparin 80mg/0.8ml syringe SUBCUT SCH ×3 (00:13→19:53)
[2021-01-12] MEDS: insulin regular, human U-100 3ml vial - multi-dose SQ SCH ×3 (03:03→14:14)
[2021-01-12 05:10] LABS: ALANINE AMINOTRANSFERASE 24 U/L (12-78); ALBUMIN 1.1 G/DL (3.4-5.0); ALBUMIN/GLOBULIN RATIO 0.2 (1.1-1.5); ALKALINE PHOSPHATASE 65 IU/L (46-116); ANION GAP 7 (8-16); ASPARTATE AMINO TRANSFERASE 18 U/L (10-37); BILIRUBIN,TOTAL 0.6 MG/DL (0.1-1.0); BLOOD UREA NITROGEN 23 MG/DL (7-18); BUN/CREATININE RATIO 26.7 (5.4-32.0); CALCIUM 8.3 MG/DL (8.5-10.1); CHLORIDE 109 MMOL/L (99-107); CREATININE 0.86 MG/DL (0.60-1.10); GLUCOSE 213 MG/DL (70-104); MAGNESIUM 2.5 MG/DL (1.5-2.4); PHOSPHORUS 2.4 MG/DL (2.3-4.5); POTASSIUM 4.4 MMOL/L (3.5-5.1); PREALBUMIN 6.4 MG/DL (19-36); SODIUM 141 MMOL/L (135-145); TOTAL CARBON DIOXIDE 25.4 MMOL/L (24-32); TOTAL PROTEIN 5.6 G/DL (6.4-8.2); TRIGLYCERIDES 85 MG/DL (20-135); eGFR 87 ML/MIN
[2021-01-12 05:23] LABS: BASOPHILS % (AUTO) 0.4 % (0-1); EOSINOPHILS % (AUTO) 0 % (0-6); HEMATOCRIT 35.6 % (42.0-52.0); HEMOGLOBIN 11.7 g/dl (14.0-17.9); LYMPHOCYTES # (AUTO) 0.1 X10'3 (1.1-4.8); LYMPHOCYTES % (AUTO) 0.9 % (21-51); MEAN CORPUSCULAR HGB CONC 32.8 g/dL (33.0-36.5); MEAN CORPUSCULAR VOLUME 94.5 FL (78-98); MEAN PLATELET VOLUME 12.1 FL (7.4-10.4); MONOCYTES # (AUTO) 0.2 X10'3 (0-0.9); MONOCYTES % (AUTO) 1.4 % (2-12); NEUTROPHILS # (AUTO) 11.4 X10'3 (1.8-7.7); NEUTROPHILS % (AUTO) 97.3 % (42-75); PLATELET COUNT 73 X10'3 (140-440); RED BLOOD COUNT 3.77 X10'6 (4.70-6.10); RED CELL DISTRIBUTION WIDTH 15.2 % (11.5-14.5); WHITE BLOOD COUNT 11.7 X10'3 (4.5-11.0)
[2021-01-12 06:24] LABS: LARGE PLATELETS FEW; PLATELET ESTIMATE DECREASED; TOTAL CELLS COUNTED 100
[2021-01-12] MEDS: normal saline 1000ml 1,000 ML IV SCH (07:25)
[2021-01-12] MEDS: sacubitril/valsartan 24mg-26mg tablet PO SCH ×2 (08:00→19:59)
[2021-01-12] MEDS: lactose-reduced food (Ensure Enlive) - 237ml bottle PO SCH ×3 (08:00→18:00)
[2021-01-12] MEDS ORDERED: venlafaxine XR 75mg capsule (Q24H) PO SCH (08:00)
[2021-01-12] MEDS: famotidine 20mg tablet PO SCH ×2 (08:02→19:59)
[2021-01-12] MEDS: atorvastatin 10mg tablet PO SCH (08:02)
[2021-01-12] MEDS: carVEDilol 3.125mg tablet PO SCH ×2 (08:02→19:58)
[2021-01-12] MEDS: docusate sod 100mg capsule PO SCH ×2 (08:03→19:58)
[2021-01-12] MEDS: clopidogrel 75mg tablet PO SCH (08:03)
[2021-01-12] MEDS: MVI, adult No.4 with vit. K 10 ML in dextrose 5% water 500ml 500 ML IV SCH ×2 (10:26)
[2021-01-12] MEDS: ZINC/COPPER/MANGANESE/SELENIUM 0.5 ML, chromic chloride inj. 5 MCG in AA 5%/CALCIUM/LYT... IV SCH ×2 (10:26→20:52)
[2021-01-12] MEDS: bisacodyl 10mg suppository rectal RC SCH (11:47)
[2021-01-12] MEDS ORDERED: amiodarone 150mg/dext, iso-os 100 ML IV ONE ×2 (13:03→13:05)
[2021-01-12] MEDS: amiodarone/D5 360MG/200ML BAG 200 ML IV SCH ×2 (13:23→19:20)
[2021-01-12] MEDS: morphine 10mg/ml inj. 100 MG in normal saline 100ml IV soln 90 ML IV SCH (19:41)
[2021-01-12] MEDS: fat emulsion IV bag 250 ML IV SCH (20:36)
[2021-01-12] MEDS: insulin glargine (Lantus) pen - multi-dose SQ SCH (21:00)
--- NOTE | 2021-01-12 23:54 | NUR ---
At 2210 patient`s condition worsened, noted unresponsive, with no auscultative signs, and no palpable pulses, and pupils dilated. was at bedside. MD Lopez notified, and was pronounced. All lines disconnected, and patient cleaned. [facility] notified by phone, with reference number [id number], and contact center consultant was Kanu Kuo. Patient not considered an organ donor candidate. permitted release of body to [facility] [employer]. Called, and they will be coming to tile picker the body.
== END 2021-01-12 22:10 | DRG 177 ==
LOC: UNDOADMIN 18:13 → CICU 2S 18:13
PROVIDERS: ADMIT Internal Medicine Critical Care Medicine; ATTEND Internal Medicine Critical Care Medicine
PROC: XW033E5 Introduction of Remdesivir Anti-infective into Peripheral Vein, Percutaneous Approach, New Technology Group 5 (ICD-10-PCS; principal; 2021-01-04)
PROC: 5A0955A Assistance with Respiratory Ventilation, Greater than 96 Consecutive Hours, High Flow/Velocity Cannula (ICD-10-PCS; 2021-01-04)
PROC: 5A09357 Assistance with Respiratory Ventilation, Less than 24 Consecutive Hours, Continuous Positive Airway Pressure (ICD-10-PCS; 2021-01-09)
PROC: 5A0935A Assistance with Respiratory Ventilation, Less than 24 Consecutive Hours, High Flow/Velocity Cannula (ICD-10-PCS; 2021-01-10)
PROC: 5A09457 Assistance with Respiratory Ventilation, 24-96 Consecutive Hours, Continuous Positive Airway Pressure (ICD-10-PCS; 2021-01-10)
DX: U07.1 COVID-19 (principal); J96.01 Acute respiratory failure with hypoxia; I50.9 Heart failure, unspecified; I25.10 Atherosclerotic heart disease of native coronary artery without angina pectoris; Z66 Do not resuscitate; Z51.5 Encounter for palliative care; Z96.0 Presence of urogenital implants; N18.9 Chronic kidney disease, unspecified; F43.10 Post-traumatic stress disorder, unspecified; K59.00 Constipation, unspecified; N28.1 Cyst of kidney, acquired; Z87.891 Personal history of nicotine dependence; Z85.46 Personal history of malignant neoplasm of prostate; Z86.718 Personal history of other venous thrombosis and embolism; Z95.5 Presence of coronary angioplasty implant and graft
CPT/HCPCS: 36415; 36573; 36600; 71045; 76770; 80053; 81001; 82570; 82803; 82948; 83735; 84100; 84134; 84145; 84156; 84300; 84478; 85007; 85008; 85018; 85025; 85379; 86140; 87081; 87207; 93306; 94660; 94760; 94799; 97110; 97161; 97530; G0378; J1100; J1650; J1815; J2270; J2930; J7030; J7060